=== PATIENT | female | born 1965 | race American Indian/Alaskan Native ===

== ENCOUNTER 2016-12-23 10:34 | Outpatient (CLI) | payer OTHER ==
--- NOTE | 2016-12-23 15:46 | Mammography Report ---
BILATERAL DIGITAL AUGMENTED SCREENING MAMMOGRAM with CAD: 12/23/16 10:34:00 CLINICAL: Routine screening. COMPARISON:None available. FINDINGS: Screening views with and without implant displacement demonstrate heterogeneously dense breasts, which may obscure small masses. No mass, architectural distortion or suspicious calcifications. Intact subpectoral implants. IMPRESSION: No mammographic evidence of malignancy. BI-RADS CATEGORY: 2 -- Benign RECOMMENDATION: Routine mammographic screening in one year. ACR BI-RADS MAMMOGRAPHIC CODES: 0 = Needs additional imaging evaluation; 1 = Negative; 2 = Benign; 3 = Probably benign; 4 = Suspicious; 5 = Malignant; 6 = Known biopsy-proven malignancy COMMENT: 1. Dense breast tissue, i.e., adenosis, fibrocystic changes, etc., may obscure an underlying neoplasm. 2. Approximately 10% of cancers are not detected with mammography. 3. A negative mammography report should not delay biopsy if a clinically suspicious mass is present. COMMENT: Patient follow-up letters are generated via our [employer] application.
== END 2016-12-23 10:35 | disposition home or self-care (01) ==
LOC: SPVWC 10:34
PROVIDERS: ATTEND Family Medicine
DX: Z12.31 Encounter for screening mammogram for malignant neoplasm of breast (principal); I10 Essential (primary) hypertension; Z98.82 Breast implant status
CPT/HCPCS: 77067; G0202

== ENCOUNTER 2018-07-24 11:25 | Outpatient (CLI) | payer OTHER ==
--- NOTE | 2018-07-24 12:14 | XRay Report ---
CHEST TWO VIEWS: 07/24/18 11:25:00 CLINICAL: Personal history of TB. Positive PPD COMPARISON: 11/27/16 FINDINGS: Normal heart and pulmonary vasculature.Mild aortic tortuosity. The lungs are normally expanded and clear except for a few tiny bilateral calcified granulomata. No airspace disease or pleural effusion.Mild degenerative changes in the spine. IMPRESSION: No acute change.Evidence of old granulomatous disease and no change since the last exam.
== END 2018-07-24 11:26 | disposition home or self-care (01) ==
LOC: SPVIMAG 11:25
PROVIDERS: ATTEND Nurse Practitioner Primary Care
DX: L92.9 Granulomatous disorder of the skin and subcutaneous tissue, unspecified (principal); I10 Essential (primary) hypertension; Z86.11 Personal history of tuberculosis
CPT/HCPCS: 71046

== ENCOUNTER 2018-07-30 10:04 | Outpatient (CLI) | payer OTHER ==
--- NOTE | 2018-07-30 12:38 | Mammography Report ---
IMPLANT MAMMOGRAM: Bilateral breast imaging was done with standard and displacement technique. The parenchymal is symmetrically seen ventral to each opaque submuscular implant. The implant contours are smooth. No suspicious findings or secondary signs of malignancy are seen. The findings are essentially unchanged when compared to her prior exam in December 2016. CAD was utilized. CONCLUSION: Negative implant mammogram. RECOMMENDATION: Routine follow-up. BI-RADS CATEGORY: 1 = Negative ACR BI-RADS MAMMOGRAPHIC CODES: 0 = Needs additional imaging evaluation; 1 = Negative; 2 = Benign; 3 = Probably benign; 4 = Suspicious; 5 = Malignant; 6 = Known biopsy-proven malignancy COMMENT: 1. Dense breast tissue, i.e., adenosis, fibrocystic changes, etc., may obscure an underlying neoplasm. 2. Approximately 10% of cancers are not detected with mammography. 3. A negative mammography report should not delay biopsy if a clinically suspicious mass is present. COMMENT: Patient follow-up letters are generated in [employer].
== END 2018-07-30 10:05 | disposition home or self-care (01) ==
LOC: SPVWC 10:04
PROVIDERS: ATTEND Family Medicine
DX: Z12.31 Encounter for screening mammogram for malignant neoplasm of breast (principal); I10 Essential (primary) hypertension
CPT/HCPCS: 77067